=== PATIENT | male | born 1935 | race Caucasian/White ===

== ENCOUNTER 2018-07-06 10:00 | Day surgery (SDC) | payer MEDICARE, OTHER ==
[~2018-07-06] VITALS: Ht 182.9 cm; Wt 98.9 kg
--- NOTE | ~2018-07-06 | OP ---
PATIENT NAME: MARY JANE CAMARENA MEDICAL RECORD: [id number] :34 [facility] DATE: SURGEON: LONNIE GIL MD DATE OF OPERATION: 07/06/2018 PREOPERATIVE DIAGNOSIS: Recurrent esophageal cancer with dysphagia. POSTOPERATIVE DIAGNOSES: Recurrent esophageal cancer with dysphagia. The esophageal cancer was circumferential and nearly occluded the lumen of the esophagus. From the teeth, it measured 35 cm to 43 cm. Diffuse moderate pangastritis. PROCEDURE: 1. Esophagogastroduodenoscopy with argon plasma coagulation therapy in order to ablate enough of the tumor to advance the gastroscope. 2. Esophageal stent placement under fluoroscopy. This was a 23 mm x 105 mm partially covered WallFlex esophageal stent. 3. Immediate surgeon interpretation of the fluoroscopic images. SURGEON: Lonnie Gil MD INDUSTRIAL SAFETY ENGINEER: None. BLOOD LOSS: Minimal. ANESTHESIA: General. COMPLICATIONS: None. The risks, possible complications and alternatives to the procedure were explained to the patient. He elects to proceed. I saw the patient in the outpatient department. I specifically told him that this was not going to be a curative procedure. Instead, it would be palliative. At the time of endoscopy, the cancer was circumferential and was so narrow that the gastroscope would not advance without ablating some of the malignancy ahead of it. OPERATIVE COURSE: The patient was conveyed to the operating room electively on 07/06/2018. General anesthesia was induced by the anesthesia staff. A bite block was inserted. A G[employer] tape was applied to the patient's anterior chest. Through the biteblock, a gastroscope was advanced. It was advanced easily into the hypopharynx. The esophagus was easily intubated. I advanced to the malignancy, which was at 35 cm from the lips. I could not advance the scope any further. I utilized the argon plasma premix concrete batcher with the esophageal setting in the forced mode to ablate tissue in front of me. I kept doing this until I was able to ablate enough tissue to advance into the stomach. There had been no evidence of perforation or false passage. Diffuse moderate pangastritis was noted. The duodenum was entered and I advanced to the third portion of the duodenum, which was normal. The gastroscope was then withdrawn into the stomach. I advanced a Jagwire through the gastroscope. I then withdrew the gastroscope over the Jagwire. I then advanced a well-lubricated [employer] a partially covered WallFlex esophageal stent over the wire. Under fluoroscopic guidance, it was deployed. No radiologist was present for this procedure. Fluoroscopic images were kept in the PACS system and are interpreted OPERATIVE REPORT [id number] MARY JANE CAMARENA by me in the body of this dictation. The deployment was guided by pagan that I had placed on the patient's chest indicating the proximal and distal extent of the malignancy. The stent was deployed fully. The stent deployment device and wire were removed. I then reintubated the patient's esophagus. I was able to advance the gastroscope into the stomach. The stent covered the entire length of the malignancy with the uncovered portions extending beyond the malignancy proximally and distally. The gastroscope was then withdrawn. A final fluoroscopic image was obtained. The patient was then extubated and conveyed to the post-anesthesia care unit where he was in stable condition. I have instructed him to chew his food carefully. He needs to eat standing or sitting up to help allow gravity to pull food down through the stent. I will see him in the office in about 3 weeks. TRANSINT:[id number] Voice Confirmation ID: [id number] DOCUMENT ID: [id number] LONNIE GIL MD at [id number] CC: NATALYA ROSS MD, LONNIE FOSTER, NICOLASA FRYE and NATALYA REYES [id number] DICTATION DATE: 07/06/181927 CAT SKINNER: 07/07/18 0040 [facility] 07/06/18 [facility] [address] [place] [address]
[~2018-07-06 10:00] MED LIST: BAYER CHEWABLE81 MG PO; CARAFATE1 G PO; COREG 3.1253.125 MG PO; COZAAR25 MG PO; FLOMAX0.4 MG PO; GABAPENTIN100 MG PO; ISOSORBIDE MONO60 M1 PO; LIPITOR40 MG PO; MERIBIN5 MG PO; METOPROLOL TART50 MG PO; MUCUS RELIEF400 MG PO; NEURONTIN 300300 MG PO; OMEPRAZOLE40 MG PO; PACERONE200 MG PO; RANITIDINE HCL150 M1 PO; RESTASIS; XALATAN 0.0052.5 ML EACH EYE
[2018-07-06 10:28] LABS: BASOPHILS 0.2 % (0-2); EOSINOPHILS 3.2 % (0-7); HEMATOCRIT 40.7 % (42.0-54.0); HEMOGLOBIN 13.9 g/dL (13.5-17.5); IMMATURE GRANULOCYTES 0.6 % (0-5); LYMPHOCYTES 22.8 % (15-50); MCHC 34.2 g/dL (31.0-37.0); MCV 93.8 fL (80.0-100.0); MEAN PLATELET VOLUME 9.4 fL (7.4-10.4); NEUTROPHILS 60.2 % (40-80); PLATELET COUNT 145 10x3/uL (130-400); RBC 4.34 10x6/uL (4.20-6.10); RDW 13.9 % (11.5-14.5); WBC 5.3 10x3/uL (4.8-10.8)
[2018-07-06 10:38] LABS: CALC OSMOLALITY 268 mosm/kg (275-300); CALCIUM 8.7 mg/dL (8.5-10.1); CARBON DIOXIDE 30.6 mmol/L (21.0-32.0); CHLORIDE - SERUM 100 mmol/L (98-107); GLUCOSE 107 mg/dL (74-106); POTASSIUM - SERUM 4.6 mmol/L (3.5-5.1); SODIUM 135 mmol/L (136-145); UREA NITROGEN 10 mg/dL (7-18); eGFR NON AFRICAN AMERICAN 76 mL/min (90-120)
[2018-07-06 10:41] LABS: APTT 28.4 SECONDS (22.8-39.4); INR 1.01 (0.85-1.17); PROTIME 12.9 SECONDS (11.6-15.0)
[2018-07-06] MEDS ORDERED: MIRALAX17 GM PO (11:19)
[2018-07-06 11:30] VITALS: BP 98/67; Ht 182.9 cm; Wt 98.9 kg
== END 2018-07-06 22:28 | disposition home or self-care (01) ==
LOC: D.OPS 10:00 → D.PAN 13:00 → D.OPS 14:15 → D.PAN 14:15 → D.M2 19:50 → D.OPS 22:28
PROVIDERS: Anesthesiology
DX: C15.9 Malignant neoplasm of esophagus, unspecified (principal); R13.10 Dysphagia, unspecified; K29.60 Other gastritis without bleeding; Z01.812 Encounter for preprocedural laboratory examination